=== PATIENT | female | born 1970 | race African-American/Black ===

== ENCOUNTER 2018-11-14 02:31 | Emergency (ER) | payer OTHER ==
[~2018-11-14] VITALS: Ht 167.6 cm; Wt 127.9 kg
[2018-11-14 02:38] VITALS: Ht 167.6 cm; Wt 127.9 kg
[2018-11-14 04:16] VITALS: BP 174/100
== END 2018-11-14 04:16 | disposition home or self-care (01) ==
LOC: ED 02:31
DX: K02.9 Dental caries, unspecified (principal); S80.01XA Contusion of right knee, initial encounter; S93.602A Unspecified sprain of left foot, initial encounter; I10 Essential (primary) hypertension; R22.41 Localized swelling, mass and lump, right lower limb; Z88.1 Allergy status to other antibiotic agents; Z90.49 Acquired absence of other specified parts of digestive tract; Z98.890 Other specified postprocedural states; Z90.89 Acquired absence of other organs; W19.XXXA Unspecified fall, initial encounter; Y93.89 Activity, other specified; Y92.89 Other specified places as the place of occurrence of the external cause; Y99.8 Other external cause status
CPT/HCPCS: Q0092